=== PATIENT | female | born 1975 | race Caucasian/White ===

== ENCOUNTER 2021-01-26 20:56 | Emergency (ER) | payer SELFPAY ==
[2021-01-26 22:21] LABS: RED BLOOD COUNT 4.31 M/UL (4.00-5.10)
[2021-01-26 22:47] LABS: BUN/CREATININE RATIO 11 (0-10)
[2021-01-26] MEDS ORDERED: CEPHALEXIN500 M1 PO (22:59)
== END 2021-01-26 23:15 | disposition home or self-care (01) ==
LOC: ER1 20:56
PROVIDERS: Emergency Medicine
DX: I83.019 Varicose veins of right lower extremity with ulcer of unspecified site (principal); E11.622 Type 2 diabetes mellitus with other skin ulcer; L97.919 Non-pressure chronic ulcer of unspecified part of right lower leg with unspecified severity; F17.200 Nicotine dependence, unspecified, uncomplicated
CPT/HCPCS: 80053; 85025; 86140; 99283